=== PATIENT | male | born 1955 | race Caucasian/White ===

== ENCOUNTER 2024-07-12 14:11 | Emergency (ER) | payer MEDICARE, MEDICAID, SELFPAY ==
[2024-07-12 14:14] VITALS: BP 146/66; PULSE 70; RESP 22; TEMP 37.1; O2SAT 95; O2SAT 98; BMI 34.2
--- NOTE | 2024-07-12 14:23 | CT_ITS ---
PROCEDURE: CT CHEST, ABD, PEL W/CONTRAST 07/12/2024 REASON FOR EXAM: [facility] TECHNIQUE: Chest, abdomen and pelvis CT with intravenous contrast. Coronal and Sagittal reconstruction series were provided. One or more dose reduction techniques were used (e.g., Automated exposure control, adjustment of the mA and/or kV according to patient size, use of iterative reconstruction technique. PATIENT PREPARATION: Per protocol CONTRAST: Isovue 370 VOLUME: 97mL. RADIATION DOSE SUMMARY: DLP: 4075.40 mGycm COMPARISON: None. FINDINGS: CT CHEST: Hardware: None significant. Lymph nodes: Normal. Heart and Vasculature: Unremarkable. Lungs and Airways: Unremarkable. Pleura: Unremarkable. Bones: Degenerative changes of the spine. Cervical ACDF. CT ABDOMEN/PELVIS: Liver: Unremarkable. Gallbladder: Unremarkable. Spleen: Unremarkable. Pancreas: Unremarkable. Adrenals: Unremarkable. Kidneys: Left kidney nonobstructive renal calculi. No hydroureteronephrosis. Bladder: Unremarkable. Reproductive Organs: Unremarkable. Bowel: Unremarkable. Appendix: Unremarkable. Lymph nodes: Unremarkable. Vasculature: Unremarkable. Peritoneum / Retroperitoneum: Unremarkable. Bones: Degenerative changes of the spine. CT/CT Chest, Abd, Pel w/Contrast IMPRESSION: No acute abnormalities of the chest, abdomen, or pelvis. Reading Location: [place] [id number]
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
[2024-07-12 15:12] VITALS: BP 134/78; PULSE 72; RESP 16; TEMP 37; O2SAT 98
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
[2024-07-12 15:37] LABS: Absolute Lymphocyte Count 1.49 X10^3/uL (0.83-4.51); Absolute Neutrophil Count 2.6 X10^3/uL (2.0-7.7); Basophil# 0.06 X10^3/uL; Basophil% 1.2 % (0-1); Eosinophil# 0.23 X10^3/uL; Eosinophils% 4.6 % (0-5); Hematocrit 42.1 % (40-54); Hemoglobin 14.5 g/dL (13.0-16.5); Lymphocyte # 1.49 X10^3/ul (0.83-4.51); Lymphocyte % 29.5 % (19-41); Mean Corp Hgb Conc 34.4 g/dL (32-36); Mean Corpuscular Hgb 31.9 pg (27.0-32.0); Mean Corpuscular Volume 92.7 fL (80-94); Mean Platelet Vol. 8.5 fl (6.2-12.0); Monocyte% 11.9 % (0-10); NRBC Flagged by Analyzer 0 % (0-5); Neutrophil # 2.62 X10^3/uL (2.7-7.7); Neutrophil % 51.8 % (47-70); Platelet Count 273 K/mm3 (150-450); RBC Distribution Width CV 12.2 % (11.6-14.6); RBC Distribution Width SD 41.8 fl (35.1-43.9); Red Blood Count 4.54 M/mm3 (4.6-6.2); White Blood Count 5.1 K/mm3 (4.4-11.0)
[2024-07-12 16:00] VITALS: BP 141/64; PULSE 78; RESP 18; TEMP 37; O2SAT 98
[2024-07-12 16:04] LABS: Troponin T High Sensitivity 10 ng/L (<=22)
[2024-07-12 16:06] LABS: Lipase 53 U/L (13-75)
[2024-07-12 16:32] LABS: AST(SGOT) 19 U/L (<=37); Alanine Aminotransfer ALT/SGPT < 5 U/L (<=46); Alkaline Phosphatase 79 U/L (40-129); Anion Gap 10 (5-15); BUN 10 mg/dL (4-19); BUN/Creat Ratio 12.7 RATIO (10-20); Bilirubin, Direct 0.09 mg/dL (0.00-0.30); Calcium,Total 9.4 mg/dL (7.6-11.0); Carbon Dioxide 23.4 mmol/L (21.0-32.0); Chloride 104 mmol/L (98-108); Creatinine, Serum 0.78 mg/dL (0.70-1.20); EST Glomerular Filtration Rate 98 (>60); Estimated Creatinine Clearance 100.62 ml/min (50-250); Globulin 2.7 g/dL (2.2-4.2); Glucose 95 mg/dL (70-99); Potassium 4.1 mmol/L (3.3-5.1); Protein, Total 6.7 g/dL (5.9-8.4); Sodium Level 138 mmol/L (133-145); Total Bilirubin 0.21 mg/dL (0.00-1.30)
[2024-07-12 16:54] VITALS: BP 128/78; PULSE 64; RESP 18; TEMP 36.6; O2SAT 99
== END 2024-07-12 16:55 | disposition home or self-care (01) ==
PROVIDERS: Physician Assistant; Emergency Provider Emergency Medicine; PCP Family Medicine; Visit Provider Emergency Medicine
DX: S09.90XA Unspecified injury of head, initial encounter (principal); G20.A1 Parkinson's disease without dyskinesia, without mention of fluctuations; G91.9 Hydrocephalus, unspecified; R07.89 Other chest pain; M54.2 Cervicalgia; S60.512A Abrasion of left hand, initial encounter; W25.XXXA Contact with sharp glass, initial encounter; V89.2XXA Person injured in unspecified motor-vehicle accident, traffic, initial encounter; Y92.481 Parking lot as the place of occurrence of the external cause; I44.7 Left bundle-branch block, unspecified; Z98.2 Presence of cerebrospinal fluid drainage device; Z87.891 Personal history of nicotine dependence
CPT/HCPCS: 70450; 71260; 72125; 74177; 80048; 80076; 83690; 84484; 85025; 93005; 99285